=== PATIENT | female | born 1965 | race Caucasian/White ===

== ENCOUNTER 2016-06-05 15:18 | Emergency (ER) | payer OTHER ==
[~2016-06-05] VITALS: Ht 160 cm; Wt 68.0 kg
[~2016-06-05 15:18] MED LIST: AMOXICILLIN500 MG PO; CLEOCIN HCL300 M1 PO; CYCLOBENZAPRINE10 M1 PO; CYCLOBENZAPRINE5 M2 PO; FLEXERIL10 MG PO; GABAPENTIN300 M2; KETOROLAC TROME10 M1 PO; MEDROL4 M2 PO; MOBIC15 MG PO; MOTRIN 600 MG600 MG PO; MOTRIN800 MG PO; OXYCODONE5 M1 PO; PERCOCET 325 MG1 TA2 PO; PERCOCET 5-3251 EACH PO; SKELAXIN800 M1 PO
[2016-06-05 15:23] VITALS: BP 175/92
--- NOTE | 2016-06-05 15:45 | ED NECK/BACK PAIN COMPLAINT ---
History of Present Illness General Chief Complaint: Low Back Pain/Injury Stated Complaint: LOWER NECK AND SHOULDER PAIN Source: patient Exam Limitations: no limitations Vital Signs & Intake/Output Vital Signs & Intake/Output Vital Signs Date Time Temp Pulse Resp B/P Pulse O2 O2 Flow FiO2 Ox Delivery Rate 06/05 1523 98.0 79 20 175/92 100 Room Air Allergies Coded Allergies: Penicillins (Intermediate, CRAMPS AND DIARRHEA 06/05/16) Reconcile Medications Cyclobenzaprine HCl 10 MG TABLET 1 TAB PO TID SPASMS Gabapentin (Unknown Strength) CAPSULE (Unknown Dose) UNKNOWN (Reported) Methylprednisolone. (Medrol) 4 MG TAB.DS.PK 1 DP PO AD NECK PAIN 6 on day 1 then reduce by one tablet daily until gone Oxycodone HCl/Acetaminophen (Percocet 5-325 MG Tablet) 5 MG-325 MG TABLET 1-2 TAB PO Q6P PRN pain Triage Note: TRIAGE: PT TO ER C/C PAIN FROM L SIDE OF NECK/SHOULDER DOWN TO L HAND. ONSET FRIDAY NIGHT. CONSTANT AND WORSENING SINCE ONSET. ALSO HAS NUMBNESS/TINGLING TO HAND. STATES NO AGGRAVATING FACTOR OR RECENT INJURY. STATES HAS HAD THIS PAIN INTERMITTENTLY SINCE HAVING NECK SURGERY IN 2012. HAS BEEN TAKING IBUPROFEN 800 MG AND TRYING HEAT TO THE AREA WITH LITTLE RELIEF NOTED. Triage Nurses Notes Reviewed? yes Onset: Abrupt Duration: day(s): (few), constant, getting worse Quality/Severity: moderate, severe HPI: 50-year-old female comes into emergency room with complaints of left-sided neck pain radiating down her left shoulder into her arm. Denies any chest pain or shortness of breath. Denies any fever chills. Pain radiates down left side. Patient reports that she is having some weakness with her milieu manager strength. Denies any rashes. History of previous cervical surgery. Patient was told that she's had herniated disc in the past. Denies any other associated symptoms currently. (REEMA RICO) Past History Travel History Traveled to [place] past 21 day No Medical History Any Pertinent Medical History? see below for history Neurological: NONE EENT: NONE Cardiovascular: hypertension Respiratory: asthma Gastrointestinal: NONE Hepatic: NONE Renal: NONE Musculoskeletal: disk herniation, CHRONIC BACK PAIN Psychiatric: NONE Endocrine: NONE Blood Disorders: NONE Cancer(s): NONE RIVER RAFTING GUIDE/Reproductive: NONE Surgical History Surgical History: hysterectomy, PLATE IN NECK Psychosocial History Who do you live with Family What is your primary language Cook Islander Tobacco Use: Current Daily Use Daily Tobacco Use Amount/Type: => 5 Cigarettes daily ETOH Use: occasional use Illicit Drug Use: denies illicit drug use Family History Hx Contributory? No (REEMA RICO) Review of Systems Review of Systems Constitutional: Reports: no symptoms. Eyes: Reports: no symptoms. Ears, Nose, Throat, Mouth: Reports: no symptoms. Respiratory: Reports: no symptoms. Cardiovascular: Reports: no symptoms. Gastrointestinal/Abdominal: Reports: no symptoms. Musculoskeletal: Reports: see HPI. Skin: Reports: no symptoms. Neurological/Psychological: Reports: no symptoms. All Other Systems: Reviewed and Negative (REEMA RICO) Physical Exam Physical Exam General Appearance: well developed/nourished, mild distress Head: atraumatic Eyes: Bilateral: normal appearance, PERRL, EOMI. Ears, Nose, Throat, Mouth: hearing grossly normal, moist mucous membrane Neck: normal inspection, supple, paraspinous muscle tender Respiratory: normal breath sounds, no respiratory distress Cardiovascular: regular rate/rhythm Back: normal inspection Extremities: normal range of motion Neurologic/Psych: awake, alert, oriented x 3, normal mood/affect Skin: intact, normal color, warm/dry Comments: 4-5 milieu manager strength left upper extremity, 5 out of 5 strength right upper extremity, gross sensation intact, no rashes Diagram Body: 1) Tenderness with palpation (REEMA RICO) Progress Differential Diagnosis: AAA, carotid dissection, cauda equina syn, herniated disc, myofascial strain, pyelo/UTI, sciatica, spinal cord inj, T/L spine injury, ureterolithiasis, cervical radiculopathy, AR Plan of Care: 06/05/2016 3:50:59 PM Symptoms are most consistent with cervical radiculopathy versus muscle spasming. Patient has no chest pain or shortness of breath. Pain is reproducible and worse with range of motion. Everything points towards a musculoskeletal primary issue. Patient was educated on returning if any increase weakness or shortness of breath or chest pain. Patient ready has appointment with orthopedic doctor on Friday. At this time patient will be treated for possible herniated disc and started on oral steroids as well as pain control. (REEMA RICO) Departure Departure Disposition: HOME OR SELF CARE Condition: Stable Clinical Impression Primary Impression: Cervical radiculopathy Referrals: HARVEY NOLEN,VESTA Cortez (PCP/Family) Additional Instructions: Take Medrol Dosepak, Percocet, and Flexeril as prescribed. Follow-up with your orthopedic doctor as ready scheduled on Friday. Return to the emergency room immediately if any other concerns worsening symptoms. Departure Forms: Customer Survey General Discharge Information Prescriptions: Current Visit Scripts Oxycodone HCl/Acetaminophen (Percocet 5-325 MG Tablet) 1-2 TAB PO Q6P PRN pain #15 TAB Cyclobenzaprine HCl 1 TAB PO TID #20 TAB Methylprednisolone. (Medrol) 1 DP PO AD #1 DP 6 on day 1 then reduce by one tablet daily until gone (REEMA RICO) PA/ROLLER MILL TENDER Co-Sign Statement Statement: ED Attending supervision documentation- [] I saw and evaluated the patient. I have also reviewed all the pertinent lab results and diagnostic results. I agree with the findings and the plan of care as documented in the PA's/ROLLER MILL TENDER's documentation. [X] I have reviewed the ED Record and agree with the PA's/ROLLER MILL TENDER's documentation. [] Additions or exceptions (if any) to the PAs/ROLLER MILL TENDER's note and plan are summarized below: [] (SHANI NOLEN,JOHN Patel)
[2016-06-05] MEDS ORDERED: MEDROL4 M2 PO (15:54)
[2016-06-05] MEDS ORDERED: PERCOCET 5-3251 EACH PO (15:54)
[2016-06-05] MEDS ORDERED: CYCLOBENZAPRINE10 M1 PO (15:54)
== END 2016-06-05 16:09 ==
LOC: ERH 15:18
DX: M54.12 Radiculopathy, cervical region (principal)

== ENCOUNTER 2016-06-12 17:00 | Emergency (ER) | payer OTHER ==
[~2016-06-12] VITALS: Ht 160 cm; Wt 70.3 kg
[2016-06-12] MEDS ORDERED: PERCOCET 5-3251 EACH PO (18:04)
[2016-06-12] MEDS ORDERED: CYCLOBENZAPRINE10 M1 PO (18:04)
--- NOTE | 2016-06-12 18:05 | ED NECK/BACK PAIN COMPLAINT ---
History of Present Illness General Chief Complaint: Upper Extremity Injury Stated Complaint: L ARM/NECK PAIN Source: patient Exam Limitations: no limitations Vital Signs & Intake/Output Vital Signs & Intake/Output Vital Signs Date Time Temp Pulse Resp B/P Pulse O2 O2 Flow FiO2 Ox Delivery Rate 06/12 1836 98.3 84 16 124/74 100 Room Air 06/13 1835 99 Room Air 06/12 1705 97.0 88 20 138/86 100 Room Air Room Air Allergies Coded Allergies: Penicillins (Intermediate, CRAMPS AND DIARRHEA 06/05/16) Reconcile Medications Cyclobenzaprine HCl 10 MG TABLET 1 TAB PO TID SPASMS Cyclobenzaprine HCl 10 MG TABLET 1 TAB PO TID SPASMS Gabapentin (Unknown Strength) CAPSULE (Unknown Dose) UNKNOWN (Reported) Methylprednisolone. (Medrol) 4 MG TAB.DS.PK 1 DP PO AD NECK PAIN 6 on day 1 then reduce by one tablet daily until gone Oxycodone HCl/Acetaminophen (Percocet 5-325 MG Tablet) 5 MG-325 MG TABLET 1-2 TAB PO Q6P PRN pain Oxycodone HCl/Acetaminophen (Percocet 5-325 MG Tablet) 5 MG-325 MG TABLET 1-2 TAB PO Q6P PRN pain Triage Note: PT TO ED WITH C/O NECK AND ARM PAIN "I HAVE A COLLAPSED DISC AND I HAVE AN APPT ON FRIDAY FOR MRI, JUST FINISHED COURSE PREDNISONE TAPER PACK". Triage Nurses Notes Reviewed? yes Onset: Abrupt Duration: week(s):, constant Timing: recent history Quality/Severity: moderate, severe Location: C-spine HPI: 50-year-old female with a history of cervical fusion comes into emergency room for evaluation of left-sided neck pain radiating down her arm. Patient was seen here recently. Patient was diagnosed by myself with cervical radiculopathy. Patient saw her orthopedic doctor who agrees that she has degenerative changes in the neck. Patient was to continue steroids and is being set up for an MRI of her neck. Patient reports that she ran out of the Percocet and Flexeril which was helping with the pain and requesting refill on the medication. Patient has been having these symptoms of neck pain for many months. Denies any new symptoms. Denies any other associated symptoms at this time. (IRENA WILSON,REEMA) Past History Travel History Traveled to [place] past 21 day No Medical History Any Pertinent Medical History? see below for history Neurological: NONE EENT: NONE Cardiovascular: hypertension Respiratory: asthma Gastrointestinal: NONE Hepatic: NONE Renal: NONE Musculoskeletal: disk herniation, CHRONIC BACK PAIN Psychiatric: NONE Endocrine: NONE Blood Disorders: NONE Cancer(s): NONE CONSULTING ENGINEER/Reproductive: NONE Surgical History Surgical History: hysterectomy, PLATE IN NECK Psychosocial History Who do you live with Family What is your primary language Portuguese Tobacco Use: Current Daily Use Daily Tobacco Use Amount/Type: => 5 Cigarettes daily ETOH Use: denies use Illicit Drug Use: denies illicit drug use Family History Hx Contributory? No (REEMA RICO) Review of Systems Review of Systems Constitutional: Reports: no symptoms. Eyes: Reports: no symptoms. Ears, Nose, Throat, Mouth: Reports: no symptoms. Respiratory: Reports: no symptoms. Cardiovascular: Reports: no symptoms. Gastrointestinal/Abdominal: Reports: no symptoms. Musculoskeletal: Reports: see HPI. Skin: Reports: no symptoms. Neurological/Psychological: Reports: no symptoms. All Other Systems: Reviewed and Negative (REEMA RICO) Physical Exam Physical Exam General Appearance: well developed/nourished, mild distress Head: atraumatic Eyes: Bilateral: normal appearance. Ears, Nose, Throat, Mouth: hearing grossly normal, moist mucous membrane Neck: normal inspection, full range of motion, paraspinous muscle tender Respiratory: no respiratory distress Back: normal inspection Extremities: normal range of motion, radial pulses intact bilaterally, 4 out of 5 strength left upper extremity, Neurologic/Psych: awake, alert, oriented x 3, normal mood/affect Skin: intact, normal color, warm/dry (REEMA RICO) Progress Differential Diagnosis: AAA, aortic dissection, C spine injury, carotid dissection, cauda equina syn, herniated disc, myofascial strain, pyelo/UTI, sciatica, spinal cord inj, thoracic outlet syn, T/L spine injury, ureterolithiasis Plan of Care: 06/12/2016 7:15:45 PM Patient is already in the process of seeing her neurosurgeon and orthopedic doctor and has an MRI scheduled. Patient prescribed refill for pain medication. Return if any other concerns. Patient understands and agrees with plan of care. (REEMA RICO) Departure Departure Disposition: HOME OR SELF CARE Condition: Stable Clinical Impression Primary Impression: Cervical radiculopathy Referrals: HARVEY NOLEN,VESTA Cortez (PCP/Family) Additional Instructions: Take Flexeril and Percocet as prescribed. Follow-up with your orthopedic a neurosurgeon. Return if any concerns worsening symptoms. Please go over all results of today's visit with your primary care doctor. Contact your primary care doctor to let them know you were here in the emergency room. There may be nonspecific findings which may not be related to your visit today here in the emergency room but may require further evaluation and chronic monitoring by your primary care doctor. If you had a laceration today the chance of foreign body always remains. You should follow-up with your primary care doctor for recheck in 3-5 days for a wound check. If you had an x-ray done there is a chance that a fracture could have been missed on initial read and you should follow-up with your primary care doctor for repeat x-rays if symptoms persist. If your blood pressure was elevated here in the emergency room please have rechecked by her primary care doctor within the next 48 hours by your primary care doctor. If you were prescribed a narcotic here in the emergency room or any type of controlled substances you're not allowed to drive while taking this medication or operate any type of heavy machinery. Narcotics can make you feel lightheaded dizziness nausea and can cause constipation. You may need to car pick up driver a stool softener. Thank you for choosing emergency room. Please return to the emergency room immediately if you have any other concerns worsening of symptoms. Departure Forms: Customer Survey General Discharge Information Prescriptions: Current Visit Scripts Oxycodone HCl/Acetaminophen (Percocet 5-325 MG Tablet) 1-2 TAB PO Q6P PRN pain #15 TAB Cyclobenzaprine HCl 1 TAB PO TID #20 TAB (REEMA RICO) PA/DRYING MACHINE BACK TENDER Co-Sign Statement Statement: ED Attending supervision documentation- [] I saw and evaluated the patient. I have also reviewed all the pertinent lab results and diagnostic results. I agree with the findings and the plan of care as documented in the PA's/DRYING MACHINE BACK TENDER's documentation. [X] I have reviewed the ED Record and agree with the PA's/DRYING MACHINE BACK TENDER's documentation. [] Additions or exceptions (if any) to the PAs/DRYING MACHINE BACK TENDER's note and plan are summarized below: [] (KEYON BOND DO)
[2016-06-12 18:37] VITALS: BP 124/74
== END 2016-06-12 18:38 ==
LOC: ERH 17:00
DX: M54.12 Radiculopathy, cervical region (principal)

== ENCOUNTER 2016-08-12 18:01 | Emergency (ER) | payer OTHER ==
[~2016-08-12] VITALS: Ht 160 cm; Wt 68.0 kg
[2016-08-12] MEDS ORDERED: LISINOPRIL10 M1 PO (21:34)
[2016-08-12] MEDS ORDERED: GABAPENTIN300 M2 (21:35)
[2016-08-12 21:37] VITALS: BP 155/73
--- NOTE | 2016-08-12 22:04 | ED NECK/BACK PAIN COMPLAINT ---
History of Present Illness General Chief Complaint: Low Back Pain/Injury Stated Complaint: NECK AND BACK PAIN Source: patient Exam Limitations: no limitations Vital Signs & Intake/Output Vital Signs & Intake/Output Vital Signs Date Time Temp Pulse Resp B/P B/P Pulse O2 O2 Flow FiO2 Mean Ox Delivery Rate 08/12 2200 Room Air 08/12 2137 96.0 101 18 155/73 98 Room Air 08/12 1813 97.5 96 16 129/84 97 Room Air ED Intake and Output 08/13 0000 08/12 1200 Intake Total Output Total Balance Patient 150 lb Weight Weight Reported by Patient Measurement Method Allergies Coded Allergies: Penicillins (Intermediate, CRAMPS AND DIARRHEA 06/05/16) Reconcile Medications Cyclobenzaprine HCl 10 MG TABLET 1 TAB PO 4 TIMES/DAY PRN MUSCLE SPASM Gabapentin (Unknown Strength) CAPSULE (Unknown Dose) UNKNOWN (Reported) Ibuprofen 800 MG TABLET 1 TAB PO TID PRN pain Lisinopril 10 MG TABLET 1 TAB PO DAILY BP (Reported) Oxycodone HCl/Acetaminophen (Percocet 5-325 MG Tablet) 5 MG-325 MG TABLET 1 TAB PO 4XDP PRN PAIN TEN...[id number] Triage Note: PT STATES HER NECK AND HER BACK HAVE BEEN HURTING SINCE FRIDAY. PT STATES SHE IS HAVING SPASMS IN HER BACK AFTER JUST HAVING NECK SURGERY 5 WEEKS AGO. Triage Nurses Notes Reviewed? yes Onset: Gradual Duration: day(s):, waxing and waning Timing: recent history Quality/Severity: moderate Location: lumbar spine Radiation: none Context: turning/bending Method of Injury: unknown Loss of Consciousness: no loss of consciousness Modifying Factors: movement Associated Symptoms: muscle spasm HPI: 51 yo woman, h/o neck surgery 5 weeks ago, presents with lower back pain She notes that she feels better with percocet but has no more medications. She has no weakness, numbness, swelling, or recent trauma. She is otherwise well and is able to ambulate without problem. Past History Travel History Traveled to [place] past 21 day No Medical History Any Pertinent Medical History? 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 No Review of Systems Review of Systems Constitutional: Reports: no symptoms. Eyes: Reports: no symptoms. Ears, Nose, Throat, Mouth: Reports: no symptoms. Respiratory: Reports: no symptoms. Cardiovascular: Reports: no symptoms. Gastrointestinal/Abdominal: Reports: no symptoms. Musculoskeletal: Reports: no symptoms. Skin: Reports: no symptoms. Neurological/Psychological: Reports: no symptoms. All Other Systems: Reviewed and Negative Physical Exam Physical Exam General Appearance: well developed/nourished, mild distress Head: atraumatic Eyes: Bilateral: PERRL, EOMI. Ears, Nose, Throat, Mouth: hearing grossly normal Neck: normal inspection, supple, full range of motion Respiratory: normal breath sounds Cardiovascular: regular rate/rhythm Gastrointestinal: soft, non-tender Back: normal inspection, muscle spasm, no vertebral tenderness Extremities: normal range of motion Neurologic/Psych: awake, alert, oriented x 3, normal mood/affect Skin: intact, normal color, warm/dry Progress Differential Diagnosis: herniated disc, myofascial strain Plan of Care: Current Medications Sig/Shannon Start time Last Medication Dose Stop Time Status Admin Cyclobenzaprine HCl 10 MG ONCE ONE 08/12 2214 UNVr (Flexeril 10MG Tab) 08/13 2215 Oxycodone/ 1 TAB ONCE ONE 08/12 2214 UNVr Acetaminophen 08/13 2215 (Percocet) Departure Departure Disposition: HOME OR SELF CARE Condition: Stable Clinical Impression Primary Impression: Back pain Referrals: HARVEY NOLEN,VESTA Cortez (PCP/Family) Departure Forms: Customer Survey General Discharge Information Prescriptions: Current Visit Scripts Oxycodone HCl/Acetaminophen (Percocet 5-325 MG Tablet) 1 TAB PO 4XDP PRN PAIN #10 TAB TEN...[id number] Cyclobenzaprine HCl 1 TAB PO 4 TIMES/DAY PRN MUSCLE SPASM #30 TAB Ref 1 Ibuprofen 1 TAB PO TID PRN pain #30 TAB Comments well appearing without neurological findings... pt has follow up with her orthopedist.
[2016-08-12] MEDS ORDERED: CYCLOBENZAPRINE10 M1 PO (22:12)
[2016-08-12] MEDS ORDERED: IBUPROFEN800 M1 PO (22:12)
[2016-08-12] MEDS ORDERED: PERCOCET 5-3251 EACH PO (22:12)
== END 2016-08-12 22:27 ==
LOC: ERH 18:01
DX: M54.5 Low back pain (principal)

== ENCOUNTER 2016-10-06 11:58 | Emergency (ER) | payer OTHER ==
[~2016-10-06] VITALS: Ht 160 cm; Wt 68.0 kg
[~2016-10-06 11:58] MED LIST changes: +IBUPROFEN800 M1 PO; +LISINOPRIL10 M1 PO
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
[2016-10-06] MEDS ORDERED: MEDROL4 M2 PO (14:08)
[2016-10-06 14:23] VITALS: BP 140/80
== END 2016-10-06 14:24 ==
LOC: ERH 11:58
DX: M54.12 Radiculopathy, cervical region (principal); M54.5 Low back pain; G89.29 Other chronic pain; M53.9 Dorsopathy, unspecified
CPT/HCPCS: 96374

== ENCOUNTER 2016-10-16 12:08 | Emergency (ER) | payer OTHER ==
--- NOTE | 2016-10-16 12:31 | ED GENERAL ADULT ---
History of Present Illness General Chief Complaint: General Adult Stated Complaint: PAIN MED REQUEST Source: patient Exam Limitations: no limitations Vital Signs & Intake/Output Vital Signs & Intake/Output Vital Signs Date Time Temp Pulse Resp B/P B/P Pulse O2 O2 Flow FiO2 Mean Ox Delivery Rate 10/16 1303 98.3 84 15 115/74 100 Room Air 10/16 1235 99 Room Air 10/16 1211 98.3 123 16 122/83 97 Room Air Allergies Coded Allergies: Penicillins (Intermediate, CRAMPS AND DIARRHEA 06/05/16) Reconcile Medications Cyclobenzaprine HCl 10 MG TABLET 1 TAB PO TID PRN PAIN Gabapentin (Unknown Strength) CAPSULE (Unknown Dose) UNKNOWN (Reported) Lisinopril 10 MG TABLET 1 TAB PO DAILY BP (Reported) Methylprednisolone. (Medrol) 4 MG TAB.DS.PK 1 DP PO AD radicular pain 6 on day 1 then reduce by one tablet daily until gone Triage Note: PT HERE FOR LOWER BACK PAIN. IS DUE TO SEE NEUROSURGEON FRIDAY, AND ORTHO IS UNAVAILABLE. Triage Nurses Notes Reviewed? yes Onset: Abrupt Duration: week(s): Timing: recent history HPI: 10/16/16 51-year-old female with a history of chronic low back pain and neck pain. She presents to the emergency department for an exacerbation of her chronic low back pain. She has no current bowel or bladder dysfunction. No objective weakness. She has a follow-up appointment with her neurosurgeon on Friday. She denies any fever. The onset of the symptoms have been abrupt, the duration has been intermittent for years really, the severity is significant as her symptoms required her to come to the emergency department for care. Past History Travel History Traveled to [place] past 21 day No Medical History Any Pertinent Medical History? 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 No Review of Systems Review of Systems Constitutional: Reports: no symptoms. EENTM: Reports: no symptoms. Respiratory: Reports: no symptoms. Cardiovascular: Reports: no symptoms. GI: Reports: no symptoms. Genitourinary: Reports: no symptoms. Musculoskeletal: Reports: back pain. Skin: Denies: rash. Neurological/Psychological: Denies: weakness. Hematologic/Endocrine: Reports: no symptoms. Immunologic/Allergic: Reports: no symptoms. All Other Systems: Reviewed and Negative Physical Exam Physical Exam General Appearance: alert, awake, anxious, mild distress Head: atraumatic, normal appearance Eyes: Bilateral: normal appearance, PERRL, EOMI. Ears, Nose, Throat: normal pharynx, normal ENT inspection Neck: normal inspection, supple, full range of motion Respiratory: normal breath sounds, chest non-tender Cardiovascular: regular rate/rhythm Peripheral Pulses: 4+ radial (R), 4+ radial (L) Gastrointestinal: non-tender Back: decreased range of motion Extremities: limited range of motion Neurologic/Psych: no motor/sensory deficits, awake, alert, oriented x 3 Skin: intact, normal color, warm/dry Comments: Physical exam is unremarkable other than left sided lumbar paravertebral muscle tenderness. 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 Core Measures ACS in differential dx? No CVA/TIA Diagnosis: No Severe Sepsis Present: No Septic Shock Present: No Progress Differential Diagnoses I considered the following diagnoses in my evaluation of the patient: [Disc herniation, lumbar strain, epidural abscess, cauda equina syndrome,] Plan of Care: Was treated with IM and by mouth Flexeril. She will follow-up with her neurosurgeon on Friday. Initial ED EKG: none Departure Departure Disposition: OTHER [facility] ([facility]) Condition: Stable Clinical Impression Primary Impression: Exacerbation of chronic back pain Referrals: JEANETH NOLEN,PHILLIP Dumont (PCP/Family) Departure Forms: Customer Survey General Discharge Information Prescriptions: Current Visit Scripts Cyclobenzaprine HCl 1 TAB PO TID PRN PAIN #30 TAB Critical Care Note Critical Care Note Critical Care Time: non-applicable
[2016-10-16] MEDS ORDERED: CYCLOBENZAPRINE10 M1 PO (12:36)
[2016-10-16 13:03] VITALS: BP 115/74
== END 2016-10-16 13:03 ==
LOC: ERH 12:08
DX: M54.5 Low back pain (principal)
CPT/HCPCS: 96372; J1885

== ENCOUNTER 2017-11-24 00:43 | Emergency (ER) | payer OTHER ==
[~2017-11-24] VITALS: Ht 160 cm; Wt 77.1 kg
[~2017-11-24 00:43] MED LIST changes: +ADVIL MIGRAINE200 M1 PO; +DICLOFENAC SODI75 M2 PO; +NORCO 5-325 TA1 EACH PO; +PRINIVIL5 M1 PO; +ZITHROMAX250 M2 PO
--- NOTE | 2017-11-24 00:47 | ED GENERAL ADULT ---
History of Present Illness General Chief Complaint: Dyspnea (COPD, CHF, Other) Stated Complaint: "BIBA PER EMS SHORTNESS OF BREATH" Source: patient Exam Limitations: no limitations Vital Signs & Intake/Output Vital Signs & Intake/Output Vital Signs Date Time Temp Pulse Resp B/P B/P Pulse O2 O2 Flow FiO2 Mean Ox Delivery Rate 11/24 0523 97.8 92 18 129/58 97 Room Air 11/24 0105 100 Room Air 11/24 0045 97.6 119 20 120/77 100 Room Air Allergies Coded Allergies: Penicillins (Intermediate, CRAMPS AND DIARRHEA 06/05/16) Reconcile Medications Diclofenac Sodium 75 MG TABLET.DR 1 TAB PO BID PRN PAIN Ibuprofen (Advil Migraine) 200 MG CAPSULE 2 TAB PO Q6H PRN PAIN/INFLAMMATION (Reported) Lisinopril (Prinivil) 5 MG TABLET 1 TAB PO DAILY BP (Reported) Triage Nurses Notes Reviewed? yes Onset: Abrupt Duration: hour(s): Timing: recent history HPI: 11/24/17 1 AM 52-year-old female presents to the emergency department complaining of back pain and muscle spasms. She also admits to difficulty breathing. She says she has pain when she tries to take a deep breath. She says she's had similar episodes in the past of muscle spasms, but not this bad. She also had chest wall pain. Past History Travel History Traveled to [place] past 21 day No Medical History Any Pertinent Medical History? see below for history Neurological: NONE EENT: NONE Cardiovascular: hypertension Respiratory: asthma Gastrointestinal: NONE Hepatic: NONE Renal: NONE Musculoskeletal: disk herniation, CHRONIC BACK PAIN Psychiatric: NONE Endocrine: NONE Blood Disorders: NONE Cancer(s): NONE HEMODIALYSIS RN/Reproductive: NONE Surgical History Surgical History: hysterectomy, PLATE IN NECK Psychosocial History Who do you live with Family What is your primary language Armenian Family History Hx Contributory? No Review of Systems Review of Systems Constitutional: Denies: fever. EENTM: Denies: visual changes. Respiratory: Denies: short of breath. Cardiovascular: Reports: see HPI. GI: Denies: abdominal pain. Genitourinary: Reports: no symptoms. Musculoskeletal: Reports: back pain. Skin: Denies: rash. Neurological/Psychological: Reports: no symptoms. Hematologic/Endocrine: Reports: no symptoms. Immunologic/Allergic: Reports: no symptoms. Physical Exam Physical Exam General Appearance: well developed/nourished, alert, awake, anxious, moderate distress Head: atraumatic, normal appearance Eyes: Bilateral: normal appearance, PERRL, EOMI. Ears, Nose, Throat: normal pharynx, normal ENT inspection, hearing grossly normal Neck: normal inspection, supple, full range of motion Respiratory: normal breath sounds, chest non-tender, no respiratory distress Cardiovascular: regular rate/rhythm Peripheral Pulses: 4+ radial (R), 4+ radial (L) Gastrointestinal: soft, non-tender Back: muscle spasm Extremities: no edema Neurologic/Psych: no motor/sensory deficits, awake, alert, oriented x 3 Skin: intact, normal color, warm/dry Core Measures ACS in differential dx? No CVA/TIA Diagnosis: No Sepsis Present: No Sepsis Focused Exam Completed? No Progress Differential Diagnoses I considered the following diagnoses in my evaluation of the patient: [Muscle spasm, disc herniation, pulmonary embolism, acute coronary syndrome, pneumothorax, pneumonia] Plan of Care: Orders Procedure Date/time Status TROPONIN LEVEL 11/24 040 Complete EKG 11/24 040 Active Add-on Test (ER Only) 11/24 0106 Active D-DIMER 11/24 0106 Complete Saline Lock 11/24 0105 Active TROPONIN LEVEL 11/24 0052 Complete MAGNESIUM 11/24 0052 Complete COMPREHENSIVE METABOLIC PANEL 11/24 005 Complete CBC WITHOUT DIFFERENTIAL 11/25 51 Complete EKG 11/24 005 Active Laboratory Tests 11/24/17 0400: Troponin I < 0.01 11/24/17 0120: D-Dimer High Sensitivty 664 H 11/24/17 0103: Anion Gap 14, Estimated GFR > 60, BUN/Creatinine Ratio 17.5, Glucose 142 H, Calcium 9.4, Magnesium 2.1, Total Bilirubin 0.5, AST 38 H, ALT 39, Alkaline Phosphatase 77, Troponin I < 0.01, Total Protein 7.8, Albumin 4.2, Globulin 3.6, Albumin/Globulin Ratio 1.2, CBC w Diff NO MAN DIFF REQ, RBC 4.71, MCV 92.1, MCH 32.5 H, MCHC 35.3, RDW 12.4, MPV 8.6, Gran % 63.4, Lymphocytes % 23.4, Monocytes % 10.5 H, Eosinophils % 2.6, Basophils % 0.1, Absolute Granulocytes 3.4, Absolute Lymphocytes 1.3, Absolute Monocytes 0.6, Absolute Eosinophils 0.1, Absolute Basophils 0 Initial ED EKG: normal axis (Sinus Tachycardia) Prior EKG: unchanged Repeat EKG: unchanged Departure Departure Disposition: HOME OR SELF CARE Condition: Stable Clinical Impression Primary Impression: Chest wall pain Secondary Impressions: Lumbar strain Referrals: Zofia Cruz MD (PCP/Family) Departure Forms: Customer Survey General Discharge Information Comments IMPRESSION: No pulmonary embolism or other acute intrathoracic abnormality. VTE: negative DICTATED BY: Kendall Singleton MD DATE/TIME DICTATED:11/24/17357 DISC RULER OPERATOR:ANTONIO DATE/TIME TRANSCRIBED:11/24/17357 CONFIDENTIAL, DO NOT COPY WITHOUT APPROPRIATE AUTHORIZATION. <Electronically signed in Other Vendor System> SIGNED BY: Kendall Singleton MD 11/24 0404 11/24/2017 5 AM Serial troponins and EKGs are unremarkable. Labs are otherwise unremarkable other than an elevated d-dimer CTA of the chest is negative The patient's symptoms improved with Ativan. She was discharged and will follow-up with her doctor this week Critical Care Note Critical Care Note Critical Care Time: non-applicable
[2017-11-24 01:22] LABS: ABSOLUTE BASOPHIL COUNT 0 /CUMM (0.0-0.2); ABSOLUTE EOSINOPHIL COUNT 0.1 /CUMM (0.0-0.7); ABSOLUTE GRANULOCYTE CT 3.4 /CUMM (1.4-6.5); ABSOLUTE LYMPH COUNT 1.3 /CUMM (1.2-3.4); ABSOLUTE MONOCYTE COUNT 0.6 /CUMM (0.10-0.60); BASOPHIL % 0.1 % (0.0-2.0); EOSINOPHIL % 2.6 % (0-5); GRANULOCYTE % 63.4 % (42.2-75.2); HEMATOCRIT 43.4 % (37-47); MEAN CORPUSCULAR HGB 32.5 PG (27.0-31.0); MEAN CORPUSCULAR HGB CONC 35.3 G/DL (33.0-37.0); MEAN CORPUSCULAR VOLUME 92.1 FL (81.0-99.0); MEAN PLATELET VOLUME 8.6 FL (7.4-10.4); PLATELET COUNT 154 /CUMM (130-400); RBC DISTRIBUTION WIDTH 12.4 % (11.5-14.5); RED BLOOD CELL CT 4.71 /CUMM (4.20-5.40); WHITE BLOOD CELL COUNT 5.4 /CUMM (4.8-10.8)
--- NOTE | 2017-11-24 01:37 | RADIOLOGY REPORT ---
EXAMINATION: XR PORTABLE CHEST CLINICAL INFORMATION: Shortness of breath COMPARISON: 05/24/2008 TECHNIQUE: Portable frontal view of the chest was obtained. FINDINGS: Partial visualization of cervical fusion hardware. The lungs are well expanded. There is no focal consolidation, edema, or effusion. No pneumothorax. The cardiomediastinal silhouette is within normal limits. No acute osseous abnormality. IMPRESSION: No acute pulmonary finding.
--- NOTE | 2017-11-24 04:04 | CT SCAN REPORT ---
EXAMINATION: CT ANGIOGRAM OF THE CHEST WITH AND WITHOUT CONTRAST (CT PULMONARY ANGIOGRAM FOR PE) CLINICAL INFORMATION: Chest pain. Shortness of breath. COMPARISON: Radiograph from earlier today. TECHNIQUE: Prior to contrast administration, noncontrast localization images were obtained. Subsequently, multidetector volumetric imaging was performed from the thoracic inlet to below the diaphragms following the administration of 73 mL Optiray 320 intravenous contrast. No contrast reaction reported. Sagittal, coronal, and MIP oblique sagittal reformatted images were obtained on the CT workstation, uploaded to PACS, and reviewed. Total exam dose-length product 540 mGy-cm. FINDINGS: QUALITY OF STUDY/CONTRAST BOLUS: Satisfactory PULMONARY ARTERIES: No central or segmental pulmonary emboli. THORACIC AORTA: No aneurysm or dissection. LUNG: The central airways are patent. Bibasilar subsegmental atelectasis. Additional atelectasis along the right middle lobe. No dense consolidation. No suspicious pulmonary nodule. PLEURA: No pleural effusion or pneumothorax. MEDIASTINUM: Normal heart size. No pericardial effusion. No hilar or mediastinal lymphadenopathy. No evidence of septal bowing or right heart strain. CHEST WALL/AXILLA: No axillary or internal mammary lymphadenopathy. OSSEOUS STRUCTURES: No acute or suspicious osseous abnormality. Mild degenerative changes throughout the spine. UPPER ABDOMEN: Unremarkable. No reflux of contrast into the hepatic veins to suggest elevated right heart pressures. IMPRESSION: No pulmonary embolism or other acute intrathoracic abnormality. VTE: negative
[2017-11-24 05:23] VITALS: BP 129/58
== END 2017-11-24 05:25 ==
LOC: ERH 00:43
PROVIDERS: Emergency Medicine
DX: S39.012A Strain of muscle, fascia and tendon of lower back, initial encounter (principal); R07.89 Other chest pain; R07.1 Chest pain on breathing; X58.XXXA Exposure to other specified factors, initial encounter; Y92.9 Unspecified place or not applicable; Y93.9 Activity, unspecified; M54.9 Dorsalgia, unspecified
CPT/HCPCS: 71045; 93005; 93010; 96374